=== PATIENT | female | born 1970 | race Two or more races ===

== ENCOUNTER 2016-09-11 03:48 | Emergency (ER) | payer BC ==
[2016-09-11] MEDS ORDERED: PREDNISONE 20 MG TABLET PO ONE (03:58)
[2016-09-11] MEDS ORDERED: IPRATROPIUM/ALBUTEROL 0.5-2.5 MG/3 ML AMPUL NEB ONE (03:58)
[2016-09-11] MEDS ORDERED: ALBUTEROL SULFATE 0.083% NEB 2.5 MG/3 ML AMPUL NEB SCH (04:13)
--- NOTE | 2016-09-11 04:39 | ER Document Report ---
ED Respiratory Problem - General Chief Complaint: Shortness Of Breath Stated Complaint: DIFFICULTY BREATHING Mode of Arrival: Ambulatory Information source: Patient TRAVEL OUTSIDE OF THE [place] IN LAST 30 DAYS: No - HPI Patient complains to provider of: Cough, Short of breath Notes: Patient arrives with complaints of chest tightness and shortness of breath that started earlier today. She states for the last few days she has had a cough. She says she's had some chest congestion. She had 3 episodes throughout the evening where she felt short of breath and felt wheezy and felt like she was having chest tightness. She denies any actual chest pain. Right now she still feels some mild shortness of breath. She denies any fever. She denies any history of asthma, hypertension, high cholesterol, CAD, smoking, diabetes. She denies any leg pain or swelling, no hormone use, no cancer, no history of DVT or PE. She did recently drive from [place] to [place] to see her son. She is actually supposed to drive back home today. She states that she used a nephew's inhaler which seemed to make her symptoms better when she was having one of her "attacks ". Patient denies any abdominal pain. She denies any nausea, vomiting, diarrhea. No rash. Nothing in particular seems to make her symptoms better or worse. - Related Data Allergies/Adverse Reactions: No Known Allergies Allergy (Verified 09/11/16 03:55) Past Medical History - Social History Smoking Status: Unknown if Ever Smoked Family History: Reviewed & Not Pertinent Renal/ Medical History: Denies: Hx Peritoneal Dialysis Review of Systems - Review of Systems -: Yes All other systems reviewed and negative Physical Exam - Vital signs Vitals: Temp Pulse Resp BP Pulse Ox 97.8 F 96 24 H 110/66 99 09/11/16 03:55 09/11/16 03:55 09/11/16 03:55 09/11/16 03:55 09/11/16 03:55 - Notes Notes: GENERAL: alert, cooperative, nontoxic, no distress. HEAD: normocephalic, atraumatic EYES: conjunctiva pink without discharge, no external redness or swelling. EARS: no external swelling, no external redness NOSE: atraumatic, no external swelling MOUTH/THROAT: mucous membranes moist and pink, posterior pharynx without erythema, swelling, exudate. No trismus or drooling. NECK: soft, supple, full range of motion, no meningismus. CHEST: no distress, lungs clear and equal throughout. No wheezing, rales, rhonchi. CARDIAC: regular rate and rhythm, no murmur, normal capillary refill, normal pulses. No peripheral edema noted. ABDOMEN: Soft, nontender. BACK: full range of motion, no CVA tenderness. EXTREMITIES: full range of motion of all extremities. No redness, no swelling. NEURO: alert and oriented 3, no focal deficits, full range of motion of all extremities. PYSCH: appropriate mood, affect. Patient is cooperative. SKIN: pink, warm, dry, no rash. Course - Re-evaluation Re-evalutation: 09/11/16 05:37 Patient is nontoxic. Stable vitals. She is not hypoxic. Patient states she's had a cough and congestion for the last several days has had a few episodes of wheezing and feeling like she was having trouble breathing earlier today. Patient has no CAD risk factors. She has a hard score of 2. EKG is unremarkable for acute findings. Troponin is negative. The patient has no d- dimer risk factors aside from recent long drive. PE is unlikely in this patient and her d-dimer is negative. The patient likely has bronchitis. She was given breathing treatment and steroids here in the emergency department. At this point patient can be discharged home wit steroids and an inhaler as well as some cough medication. She was instructed to follow-up with her primary care doctor at the next available appointment. Follow up sooner if she develops chest pain, significant difficulty breathing, high fevers, or any further concerns. The patient's emergency department workup and current diagnosis were explained to the patient and or family. Follow-up instructions were provided. Medications if prescribed were discussed. Instructions for when to return to the emergency department including specific worrisome symptoms were discussed with the patient and/or family. 09/11/16 05:41 Heart Score 2 points Low Score (0-3 points) Risk of MACE of 0.9-1.7%. - Vital Signs Vital signs: Temp Pulse Resp BP Pulse Ox 97.8 F 96 24 H 110/66 99 09/11/16 03:55 09/11/16 03:55 09/11/16 03:55 09/11/16 03:55 09/11/16 03:55 - Laboratory Result Diagrams: 09/11/16 04:50 09/11/16 04:50 Laboratory results interpreted by me: 09/11/16 09/11/16 04:50 04:50 WBC 10.7 H Hct 35.0 L MCV 79 L RDW 14.8 H BUN 5 L Glucose 118 H - Diagnostic Test Radiology reviewed: Image reviewed, Reports reviewed - Chest x-ray clear - EKG Interpretation by Me EKG shows normal: Sinus rhythm, [place], Intervals, QRS Complexes Rate: Normal When compared to previous EKG there are: Previous EKG unavailable Additional EKG results interpreted by me: 09/11/16 05:37 Slightly flattened T waves in lead 3 and aVF Discharge - Discharge Clinical Impression: Bronchitis Condition: Stable Disposition: HOME, SELF-CARE Instructions: Bronchitis ([facility]) Additional Instructions: Take medications as prescribed. Follow-up with your family doctor at the next available appointment. Follow-up sooner for difficulty breathing, chest pain, high fever, or any further concerns. The medication you were prescribed today may cause drowsiness. Do not drive or operate heavy machinery while taking this medication. Prescriptions: Hydrocodone Bit/Homatropine [Hycodan Syrup 5-1.5 mg/5 ml Ud Cup] 5 ml PO Q4HP PRN #120 ml PRN Reason: RX: Albuterol Sulfate [Proair HFA Inhalation Aerosol 8.5 gm MDI] 2 puff IH Q4 PRN #1 mdi PRN Reason: RX: Prednisone 60 mg PO DAILY #15 tablet
[2016-09-11 05:03] LABS: ABSOLUTE EOSINOPHILS # (AUTO) 0.3 10^3/uL (0.0-0.6); ABSOLUTE MONOCYTES (AUTO) 0.7 10^3/uL (0.1-1.4); ABSOLUTE NEUT (AUTO) 6.6 10^3/uL (1.7-8.2); BASOPHILS % (AUTO) 0.4 % (0-2); HEMOGLOBIN 12.1 g/dL (12.0-15.5); HGB HCT DIFFERENCE 1.3; LYMPHOCYTES % (AUTO) 27.7 % (13-45); MEAN CORPUSCULAR HEMOGLOBIN 27.4 pg (27.0-33.4); MEAN CORPUSCULAR HGB CONC 34.6 g/dL (32.0-36.0); MEAN CORPUSCULAR VOLUME 79 fl (80-97); MONOCYTES % (AUTO) 6.9 % (3-13); RED BLOOD COUNT 4.43 10^6/uL (3.72-5.28); RED CELL DISTRIBUTION WIDTH 14.8 % (11.5-14.0); WHITE BLOOD COUNT 10.7 10^3/uL (4.0-10.5)
[2016-09-11 05:12] LABS: ALANINE AMINOTRANSFERASE 32 U/L (9-52); ALBUMIN 4.3 g/dL (3.5-5.0); ALKALINE PHOSPHATASE 93 U/L (38-126); ANION GAP 14 (5-19); ASPARTATE AMINO TRANSFERASE 20 U/L (14-36); BILIRUBIN,DIRECT 0.2 mg/dL (0.0-0.4); BILIRUBIN,TOTAL 0.5 mg/dL (0.2-1.3); BLOOD UREA NITROGEN 5 mg/dL (7-20); CALCIUM 9.6 mg/dL (8.4-10.2); CARBON DIOXIDE 25 mmol/L (22-30); CHLORIDE 106 mmol/L (98-107); CREATINE KINASE 73 U/L (30-135); CREATININE RESULT 0.55 mg/dL (0.52-1.25); GLUCOSE 118 mg/dL (75-110); POTASSIUM 3.8 mmol/L (3.6-5.0); SODIUM 144.8 mmol/L (137-145); TOTAL PROTEIN 7.7 g/dL (6.3-8.2)
[2016-09-11 05:25] LABS: TROPONIN I < 0.012 ng/mL
[2016-09-11 05:56] VITALS: BP 119/68
--- NOTE | 2016-09-11 08:41 | EKG REPORT ---
SEVERITY:- BORDERLINE ECG - SINUS RHYTHM BORDERLINE T ABNORMALITIES, INFERIOR LEADS : Confirmed by: Compa Acevedo 11-Sep-2016 08:41:06
== END 2016-09-11 05:55 | disposition home or self-care (01) ==
LOC: ER 03:48
DX: J40 Bronchitis, not specified as acute or chronic (principal); R06.02 Shortness of breath
CPT/HCPCS: 93005; 94640; 99285; 36415; 82550; 84703; 85025; 80053; 84484; 85379; 83880; 71020; 93010; J7512; J7620